=== PATIENT | female | born 1950 | race Caucasian/White ===

== ENCOUNTER 2016-06-10 12:11 | Emergency (ER) | payer OTHER ==
[~2016-06-10] VITALS: Ht 175.3 cm; Wt 138.3 kg
[~2016-06-10 12:11] MED LIST: ALLOPURINOL100 MG PO; ATENOLOL50 MG PO; BACTRIM,SEPT1 TABLET PO; CYCLOBENZAPRINE10 MG PO; DAILY VALUE1 EACH PO; FUROSEMIDE40 MG PO; GLUCOSAMINE &1 EAC1 PO; GLUCOTROL XL10 MG PO; JANUVIA100 MG PO; SULINDAC200 MG PO; TRAMADOL HCL50 MG PO; VALSARTAN320 MG PO
[2016-06-10] MEDS ORDERED: FLEXERIL10 MG PO (16:06)
[2016-06-10] MEDS ORDERED: VOLTAREN75 MG PO (16:06)
[2016-06-10] MEDS ORDERED: ULTRAM50 MG PO (16:06)
[2016-06-10 16:36] VITALS: BP 138/78
== END 2016-06-10 16:38 | disposition home or self-care (01) ==
LOC: EME 12:11 → EXP 12:11
DX: S70.12XA Contusion of left thigh, initial encounter (principal); V49.40XA Driver injured in collision with unspecified motor vehicles in traffic accident, initial encounter; E11.9 Type 2 diabetes mellitus without complications; I10 Essential (primary) hypertension; Z79.84 Long term (current) use of oral hypoglycemic drugs
CPT/HCPCS: 72170; 73552; 99281; 99284

== ENCOUNTER 2017-03-21 07:59 | Day surgery (SDC) | payer OTHER ==
[~2017-03-21] VITALS: Ht 175.3 cm; Wt 131.5 kg
[~2017-03-21 07:59] MED LIST changes: +CLOBEX59 M1 TP; +FLEXERIL10 MG PO; +GLUCOTROL5 MG PO; +KENALOG,ARISTOC15 GM TP; +LASIX40 MG PO; +SYNTHROID25 MCG PO; +ULTRAM50 MG PO; +VOLTAREN75 MG PO
[2017-03-21 09:08] LABS: POINT-OF-CARE METER ID UU14174212
== END 2017-03-21 09:55 | disposition home or self-care (01) ==
LOC: PAIN 07:59 → SDC 08:30 → PAIN 08:30
PROVIDERS: Anesthesiology Pain Medicine
DX: M47.816 Spondylosis without myelopathy or radiculopathy, lumbar region (principal); M54.5 Low back pain; G89.29 Other chronic pain; M47.812 Spondylosis without myelopathy or radiculopathy, cervical region; I10 Essential (primary) hypertension; E11.9 Type 2 diabetes mellitus without complications; E03.9 Hypothyroidism, unspecified; E66.9 Obesity, unspecified; Z68.41 Body mass index [BMI] 40.0-44.9, adult; Z79.84 Long term (current) use of oral hypoglycemic drugs; Z79.891 Long term (current) use of opiate analgesic
CPT/HCPCS: 82948; J1030; J2250; J3010; S0020

== ENCOUNTER 2017-03-28 07:56 | Day surgery (SDC) | payer OTHER ==
[~2017-03-28] VITALS: Ht 175.3 cm; Wt 90.7 kg
[~2017-03-28 07:56] MED LIST changes: +ACLOVATE15 G1 TP; +CLOBEX59 ML TP
[2017-03-28 08:31] LABS: POINT-OF-CARE METER ID UU14174212
[2017-03-28 08:55] LABS: ANION GAP 13 MEQ/L (2-14); CHLORIDE 104 MEQ/L (99-109); GFR ESTIMATE (CALCULATED) 48 mL/min/; GLUCOSE 114 mg/dL (70-99); POTASSIUM 3.8 MEQ/L (3.7-5.4); SAMPLE HEMOLYSIS CHECK 0; SAMPLE ICTERIC CHECK 0; SAMPLE LIPEMIA CHECK 0; SODIUM 143 MEQ/L (136-147); UREA NITROGEN (BUN) 25 mg/dL (9-23)
== END 2017-03-28 09:45 | disposition home or self-care (01) ==
LOC: PAIN 07:56
PROVIDERS: Anesthesiology Pain Medicine
DX: M47.816 Spondylosis without myelopathy or radiculopathy, lumbar region (principal); M54.5 Low back pain; G89.29 Other chronic pain; M47.812 Spondylosis without myelopathy or radiculopathy, cervical region; I10 Essential (primary) hypertension; E11.9 Type 2 diabetes mellitus without complications; E03.9 Hypothyroidism, unspecified; Z79.84 Long term (current) use of oral hypoglycemic drugs
CPT/HCPCS: 80048; 82948; J1030; J2250; J3010; S0020